=== PATIENT | male | born 1980 | race Caucasian/White ===

== ENCOUNTER 2017-06-10 08:08 | Emergency (ER) | payer MEDICAID ==
[2011-02-04 09:51] VITALS: BMI 45.6
== END 2017-06-10 08:55 | disposition home or self-care (01) ==
LOC: D.ER 08:08
DX: L02.11 Cutaneous abscess of neck (principal); I10 Essential (primary) hypertension; F17.200 Nicotine dependence, unspecified, uncomplicated